=== PATIENT | female | born 1985 | race Caucasian/White ===

== ENCOUNTER 2023-01-25 13:40 | Emergency (ER) | payer BC, OTHER ==
[2023-01-25] MEDS ORDERED: HYDROmorphone 0.5 MG/0.5 ML Syringe IM ONE (15:07)
[2023-01-25] MEDS ORDERED: Ondansetron 4 MG Tab.DIS PO ONE (15:07)
[2023-01-25 16:25] VITALS: BP 145/72; PULSE 80
== END 2023-01-25 16:27 | disposition home or self-care (01) ==
LOC: JD.ED 13:40
DX: M54.2 Cervicalgia (principal); I10 Essential (primary) hypertension; E66.9 Obesity, unspecified; Z68.41 Body mass index [BMI] 40.0-44.9, adult; Z88.1 Allergy status to other antibiotic agents; Z88.0 Allergy status to penicillin; Z88.8 Allergy status to other drugs, medicaments and biological substances; Z79.899 Other long term (current) drug therapy; W19.XXXA Unspecified fall, initial encounter; Y92.009 Unspecified place in unspecified non-institutional (private) residence as the place of occurrence of the external cause
CPT/HCPCS: 72125; 72125-26; 96372; 99283